=== PATIENT | male | born 1980 ===

== ENCOUNTER 2017-11-20 09:15 | Inpatient (IN) | payer MEDICAID ==
[2017-11-20 09:23] VITALS: BMI 24.3
--- NOTE | 2017-11-20 09:33 | C.PDOC ---
History Of Present Illness 37 years old male presents to ED requesting detox from heroin, cocaine, and alcohol. Patient states last use was yesterday. 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 Denies SI, depression or any other physical complaints. REQUESTING DETOX. HEROIN, COCAINE ETOH ABUSE LAST USE YESTERDAY. 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 NO ACUTE INTOX OR WITHDRAWAL, NEG SI/SA REMAINDER NEG <Layla Alatorre - Last Filed: 11/20/17 11:02> <Geeta Armstrong - Last Filed: 11/20/17 09:30> History Per: Patient History/Exam Limitations: no limitations Onset/Duration Of Symptoms: Hrs Current Symptoms Are (Timing): Still Present Suicide/Self Injury Attempted (Context): None Modifying Factor(s): Alcohol, Narcotics (Heroin ), Cocaine Associated Symptoms: denies: Suicidal Thoughts, Suicidal Plan Involuntary Hold By: None Recent travel outside of the [place]: No <Layla Alatorre - Last Filed: 11/20/17 11:02> Time Seen by Provider: 11/20/17 09:30 Chief Complaint (Nursing): Psychiatric Evaluation Past Medical History Vital Signs: Last Vital Signs Temp 98.2 F 11/20/17 09:23 Pulse 59 L 11/20/17 09:23 Resp 16 11/20/17 09:23 BP 128/81 11/20/17 09:23 Pulse Ox 99 11/20/17 09:23 - Social History Hx Alcohol Use: Yes Hx Substance Use: Yes - Immunization History Hx Tetanus Toxoid Vaccination: No Hx Influenza Vaccination: No Hx Pneumococcal Vaccination: No <Geeta Armstrong - Last Filed: 11/20/17 09:30> Reviewed: Historical Data, Nursing Documentation, Vital Signs Vital Signs: Last Vital Signs Temp 98.2 F 11/20/17 09:23 Pulse 59 L 11/20/17 09:23 Resp 16 11/20/17 09:23 BP 128/81 11/20/17 09:23 Pulse Ox 99 11/20/17 09:42 - Medical History PMH: No Chronic Diseases Family History: States: No Known Family Hx <Layla Alatorre - Last Filed: 11/20/17 11:02> Review Of Systems Except As Marked, All Systems Reviewed And Found Negative. Psych: Positive for: Other (Detox from heroin, cocaine, and alcohol.) <Layla Alatorre - Last Filed: 11/20/17 11:02> Physical Exam - Physical Exam Appears: Non-toxic, No Acute Distress, Other (PSYCH PATIENT, CALM, COOPERATIVE, NO ACUTE INTOXICATION OR WITHDRAWAL) Skin: Normal Color, Warm, Dry, No Rash Head: Atraumatic, Normacephalic Eye(s): bilateral: Normal Inspection, PERRL, EOMI Oral Mucosa: Moist Neck: Supple Chest: Symmetrical, No Tenderness Cardiovascular: Rhythm Regular, No Murmur Respiratory: Normal Breath Sounds, No Rales, No Rhonchi, No Wheezing, Other (NARD) Gastrointestinal/Abdominal: Bowel Sounds (Active ), Soft, No Tenderness, No Guarding, No Rebound Extremity: No Swelling Extremity: Bilateral: Atraumatic, Normal Color And Temperature, Normal ROM Pulses: Left Radial: Normal, Right Radial: Normal Neurological/Psych: Oriented x3, Normal Speech, Other (No focal deficits. No SI/SA ) Gait: Steady <Layla Alatorre - Last Filed: 11/20/17 11:02> ED Course And Treatment O2 Sat by Pulse Oximetry: 99 <Geeta Armstrong - Last Filed: 11/20/17 09:30> - Laboratory Results Result Diagrams: 11/20/17 09:53 11/20/17 09:53 Pulse Ox Interpretation: Normal - Physician Consult Information Time Consulting Physician Contacted: 10:44 Outcome Of Conversation: MEDICALLY CLEAR FOR DETOX. CRISIS NOTIFIED <Layla Alatorre - Last Filed: 11/20/17 11:02> Medical Decision Making Medical Decision Making: Plan: * UA * Blood work Crisis Notified. <Layla Alatorre - Last Filed: 11/20/17 11:02> Disposition <Geeta Armstrong - Last Filed: 11/20/17 09:30> <Layla Alatorre - Last Filed: 11/20/17 11:02> - Disposition Forms: [facility] (Chinese) - Scribe Statement The provider has reviewed the documentation as recorded by the Scribe George Page All medical record entries made by the Scribe were at my direction and personally dictated by me. I have reviewed the chart and agree that the record accurately reflects my personal performance of the history, physical exam, medical decision making, and the department course for this patient. I have also personally directed, reviewed, and agree with the discharge instructions and disposition.[email or web address] <Layla Alatorre - Last Filed: 11/20/17 11:02>
[2017-11-20 10:01] LABS: URINE BILIRUBIN NEGATIVE (NEGATIVE); URINE BLOOD NEGATIVE (NEGATIVE); URINE CLARITY Clear (Clear); URINE COLOR Straw (YELLOW); URINE GLUCOSE (UA) NORMAL (Normal); URINE LEUKOCYTE ESTERASE NEG Leu/uL (Negative); URINE PROTEIN NEGATIVE (NEGATIVE); URINE UROBILINOGEN NORMAL mg/dL (0.2-1.0)
[2017-11-20 10:08] LABS: BASO # 0.1 K/uL (0.0-0.2); EOS # 0.2 K/uL (0.0-0.7); EOS % 2.9 % (0.0-4.0); HEMOGLOBIN 16.2 g/dL (12.0-18.0); LYMPH # 1.1 K/uL (1.0-4.3); LYMPH % 14.3 % (20.0-40.0); MEAN CELL VOLUME 90.6 fL (80.0-94.0); MEAN CORPUSCULAR HGB CONC 34.2 g/dL (33.0-37.0); MEAN PLATELET VOLUME 9.9 fL (7.2-11.7); MONO # 0.5 K/uL (0.0-0.8); MONO % 6.5 % (0.0-10.0); NEUT % 75.3 % (50.0-75.0); NRBC % 0.1 % (0.0-2.0); RBC 5.25 Mil/uL (4.40-5.90); RED CELL DISTRIBUTION WIDTH 14.6 % (11.5-14.5); WHITE BLOOD COUNT 7.9 K/uL (4.8-10.8)
[2017-11-20 10:17] LABS: ALB/GLOB RATIO 1.3 (1.0-2.1); ALBUMIN 4.5 g/dL (3.5-5.0); ALT/SGPT 29 U/L (21-72); AST/SGOT 31 U/L (17-59); BLOOD UREA NITROGEN 15 mg/dL (9-20); CALCIUM 9.7 mg/dl (8.6-10.4); GFR NON-AFRICAN AMERICAN > 60
[2017-11-20 10:38] LABS: BARBITURATES, UR NEGATIVE (NEGATIVE); BENZODIAZEPINES, UR NEGATIVE (NEGATIVE); PHENCYCLIDINE, UR NEGATIVE (NEGATIVE)
[2017-11-20 10:41] LABS: OPIATES, UR POSITIVE (NEGATIVE)
--- NOTE | 2017-11-20 11:42 | C.PDOC ---
History Of Present Illness 37 years old male presents to ED requesting detox from heroin, cocaine, and alcohol. Patient states last use was yesterday. 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 Denies SI, depression or any other phys ical complaints. REQUESTING DETOX. HEROIN, COCAINE ETOH ABUSE LAST USE YESTERDAY. 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 NO ACUTE INTOX OR WITHDRAWAL, NEG SI/SA REMAINDER NEG Time Seen by Provider: 11/20/17 09:30 Chief Complaint (Nursing): Psychiatric Evaluation History Per: Patient History/Exam Limitations: no limitations Onset/Duration Of Symptoms: Hrs Current Symptoms Are (Timing): Still Present Suicide/Self Injury Attempted (Context): None Modifying Factor(s): Alcohol, Narcotics (Heroin ), Cocaine Associated Symptoms: denies: Suicidal Thoughts, Suicidal Plan Involuntary Hold By: None Recent travel outside of the [place]: No Past Medical History Reviewed: Historical Data, Nursing Documentation, Vital Signs Vital Signs: Last Vital Signs Temp 98.2 F 11/20/17 09:23 Pulse 59 L 11/20/17 09:23 Resp 16 11/20/17 09:23 BP 128/81 11/20/17 09:23 Pulse Ox 99 11/20/17 09:42 - Medical History PMH: No Chronic Diseases Family History: States: No Known Family Hx - Social History Hx Alcohol Use: Yes Hx Substance Use: Yes - Immunization History Hx Tetanus Toxoid Vaccination: No Hx Influenza Vaccination: No Hx Pneumococcal Vaccination: No Review Of Systems Except As Marked, All Systems Reviewed And Found Negative. Psych: Positive for: Other (Detox from heroin, cocaine, and alcohol. ). Negative for: Suicidal ideation Physical Exam - Physical Exam Appears: Non-toxic, No Acute Distress, Other (PSYCH PATIENT; CALM, COOPERATIVE, NO ACUTE INTOXICATION, OR WITHDRAWAL. NEGATIVE SI/SA) Skin: Normal Color, Warm, Dry, No Rash Head: Atraumatic, Normacephalic Eye(s): bilateral: Normal Inspection, PERRL, EOMI Oral Mucosa: Moist Neck: Supple Chest: Symmetrical, No Tenderness Cardiovascular: Rhythm Regular, No Murmur Respiratory: Normal Breath Sounds, No Rales, No Rhonchi, No Wheezing, Other (DOMO D) Gastrointestinal/Abdominal: Bowel Sounds (Active ), Soft, No Tenderness, No Guarding, No Rebound Extremity: No Swelling Extremity: Bilateral: Atraumatic, Normal Color And Temperature, Normal ROM Pulses: Left Radial: Normal, Right Radial: Normal Neurological/Psych: Oriented x3, Normal Speech, Other (No focal deficits ) Gait: Steady ED Course And Treatment - Laboratory Results Result Diagrams: 11/20/17 09:53 11/20/17 09:53 O2 Sat by Pulse Oximetry: 99 (RA) Pulse Ox Interpretation: Normal Medical Decision Making Medical Decision Making: Plan: * Blood work * UA Crisis Notified. Disposition Counseled Patient/Family Regarding: Studies Performed, Diagnosis - Disposition Disposition: HOSPITALIZED Disposition Time: 11:54 Condition: STABLE Forms: [facility] (Khmer) - POA Present On Arrival: None - Clinical Impression Clinical Impression: Polysubstance abuse - Scribe Statement The provider has reviewed the documentation as recorded by the Scribe George Page All medical record entries made by the Scribe were at my direction and personally dictated by me. I have reviewed the chart and agree that the record accurately reflects my personal performance of the history, physical exam, medical decision making, and the department course for this patient. I have also personally directed, reviewed, and agree with the discharge instructions and disposition.[email or web address]
--- NOTE | 2017-11-20 13:17 | PCM.BM ---
<Yoli Adams - Last Filed: 11/20/17 13:16> Treatment Plan Problems - Problems identified on initial assessmt Potential for opiate withdrawal Date Initiated: 11/20/17 Time Initiated: 13:17 Assessment reference: NA Status: Active Treatment assets and liabiliti Patient Assests: adapts well, cooperative, insightful, self-reliant, ADL independent Patient Liabilities: financial problems, relationship conflicts, substance abuse - Milieu Protocol Maintain good personal hygiene: daily Encourage regular showers, daily Remind patient to perform daily oral care, daily Assist patient to perform ADL's Maintain personal safety: daily Educate patient to report safety concerns to staff, daily Monitor environment for contraband/sharps, every shift Educate patient to report safety concerns to staff, every shift Monitor environment for contraband/sharps Medication safety: Monitor for expected outcome, potential side effects: daily, every shift, Assess barriers to learning: daily, every shift, Assess readiness for medication education: daily, every shift <Susan Álvarez - Last Filed: 11/23/17 12:46> - Diagnosis (1) Opioid use disorder, severe, dependence Status: Acute Interventions: 11/23/17 12:46 * Assess 7x/week regarding severity of withdrawal * Educate regarding risks, benefits, side effects and alternatives of medications * Use Motivational Interviewing for abstinence * Use CBT for relapse prevention * Medication management for withdrawal symptoms * Encourage medication assisted treatment *
[2017-11-21] MEDS ORDERED: Aluminum Hydroxide/Magnesium Hydroxide Susp (30 mL) PO PRN (09:02)
--- NOTE | 2017-11-21 13:17 | PCM.PSYCH ---
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 This is his second detox He says he has had ODs, lost family and jobs, cannot stop alone or outside. He was in [place] for detox and rehab Uses cocaine 1/4 gm daily iv Smokes 1 ppd cigarettes He says he used everything but not anymore He describes pTSD from childhood and later traumas, not sexual. He also has depression, anxiety and as a child he had ADHD Not suicidal or homicidal Family psych : lots of people with bipolar d/o and substance use medical hx: denied Current Medications: Active Medications Generic Name Dose Route Start Last Admin Trade Name Freq PRN Reason Stop Dose Admin Al Hydrox/Mg Hydrox/Simethicone 30 ml 11/21/17 09:02 Maalox 30 Ml PO TID PRN Indigestion / Heartburn Clonidine HCl 0.1 mg 11/21/17 09:03 Catapres PO Q8 PRN COWS Score More or Equal to 5 Gabapentin 400 mg 11/21/17 14:00 Neurontin PO TID LATRELL Hydroxyzine HCl 50 mg 11/21/17 10:24 11/21/17 10:40 Atarax PO 50 mg Q6 PRN Administration Anxiety Ibuprofen 600 mg 11/20/17 16:19 11/21/17 11:30 Motrin Tab PO 600 mg Q6 PRN Administration pain Loperamide HCl 2 mg 11/21/17 09:03 Imodium PO Q8 PRN Diarrhea Methadone HCl 15 mg 11/21/17 10:00 11/21/17 09:23 Methadone PO 11/25/17 09:59 15 mg Q24H LATRELL Administration Taper Ondansetron HCl 4 mg 11/21/17 09:03 Zofran Tab PO Q8 PRN Nausea/Vomiting Trazodone HCl 50 mg 11/20/17 18:11 Desyrel PO HS PRN insomnia Past Psychiatric History - Past Psychiatric History Previous Treatment History: Intensive Outpatient Pertinent Medical Hx (Current Medical&Sleep Prob, Allergies): Allergies Allergy/AdvReac Type Severity Reaction Status Date / Time No Known Allergies Allergy Verified 11/20/17 09:22 No Known Home Med 11/20/17 Review of Systems - Neurological Neurological: UNREMARKABLE - Psychiatric Psychiatric: Abnormal Sleep Pattern, Anhedonia, Anxiety, Change in Appetite, Difficulty Concentrating, Irritability. absent: Hallucinations, Homicidal Ideation, Paranoia, Suicidal Ideation Mental Status Examination - Personal Presentation Personal Presentation: Looks stated age - Affect Affect: Constricted - Motor Activity Motor Activity: Calm - Reliability in Providing Information Reliability in Providing Information: Good - Speech Speech: Organized - Mood Mood: Anxious - Formal Thought Process Formal Thought Process: No Impairment - Cognitive Functions Orientation: Person, Place, Situation, Time Sensorium: Alert Attention/Concentration: Attentive Estimate of Intelligence: Average Judgement: Intact, as evidence by: Insight regarding need for hospitalization Memory: Recent intact, as evidence by: Ability to recall events of the day, Remote intact, as evidenced by: Abilit to recall sig. life events - Risk Risk: Withdrawal, Diminished functioning - Strength & Assets Inventory Strength & Assets Inventory: Cooperative - Limitations Limitations: Living alone DSM 5 DX - DSM 5 DSM 5 Diagnosis: Opioid withdrawal Opioid use d/o - severe PTSD Depressive d/o - unspecified Cocaine use d/o - sveer Tobacco use d/o - severe ADHD by history - Recommended/Plan of Treatment Treatment Recommendations and Plan of Treatment: Taper with methadone Gabapentin for augmentation As needed medications All risks, benefits and alternatives of the meds discussed, and the pt agreed and understood. Attend groups and activities Supportive therapy and psychoeducation WA for abstinence CBT for relapse prevention and PTSD, depression, anxiety Encourage MAT Refer to rehab or IOP, and self-help groups Teach healthy lifestyle methods, i.e. diet, exercise, meditation Smoking cessation with WA Nicotine patch if needed 34 min Projected ELOS: 4-5 days Prognosis: good - Smoking Cessation Smoking Cessation Initiated: Yes
--- NOTE | 2017-11-22 12:48 | PCM.PYCHPN ---
Psychiatric Progress Note - Psychiatric Progress Note Patient seen today, length of contact: 16 min Patient Chief Complaint: "I am very anxious" Problems Identified/Issues Discussed: The pt is seen, chart reviewed, case discussed with staff. Support and psychoeducation given, CBT and AL used briefly No new symptoms reported, improving slowly and needs more time No SEs from medications, risks discussed. After care discussed Medication Change: Yes (Detox changes daily) Medical Record Reviewed: Yes Mental Status Examination - Cognitive Function Orientation: Person, Place, Situation, Time Memory: Intact Attention: WNL Concentration: Poor Association: WNL Fund of Knowledge: WNL - Mood Mood: Anxious - Affect Affect: Constricted - Speech Speech: Appropriate - Formal Thought Process Formal Thought Process: No Impairment - Suicidal Ideation Suicidal Ideation: No - Homicidal Ideation Homicidal Ideation: No Goal/Treatment Plan - Goal/Treatment Plan Need for Continued Stay: Discharge may exacerbated symptoms, Severe functional impairment Progress Toward Problem(s) and Goals/Treatment Plan: Taper with methadone Gabapentin for augmentation As needed medications All risks, benefits and alternatives of the meds discussed, and the pt agreed and understood. Attend groups and activities Supportive therapy and psychoeducation AL for abstinence CBT for relapse prevention and PTSD, depression, anxiety Encourage MAT Refer to rehab or IOP, and self-help groups Teach healthy lifestyle methods, i.e. diet, exercise, meditation Smoking cessation with AL Nicotine patch if needed
--- NOTE | 2017-11-23 12:46 | PCM.PYCHPN ---
Psychiatric Progress Note - Psychiatric Progress Note Patient seen today, length of contact: 15 minutes Patient Chief Complaint: "I'm very worried" Problems Identified/Issues Discussed: The pt is seen, chart reviewed, case discussed with staff. The pt is compliant with medications and reports no side-effects. Symptoms are improving but needs more time to stabilize. Pt attends groups and activities. Support given, psycho-education provided. After care discussed. Medication Change: Yes (Detox change stay) Medical Record Reviewed: Yes Mental Status Examination - Cognitive Function Orientation: Person, Place, Situation, Time Memory: Intact Attention: WNL Concentration: Poor Association: WNL Fund of Knowledge: WNL - Mood Mood: Anxious - Affect Affect: Constricted - Speech Speech: Appropriate - Formal Thought Process Formal Thought Process: No Impairment - Suicidal Ideation Suicidal Ideation: No - Homicidal Ideation Homicidal Ideation: No Goal/Treatment Plan - Goal/Treatment Plan Need for Continued Stay: Discharge may exacerbated symptoms, Severe functional impairment Progress Toward Problem(s) and Goals/Treatment Plan: Taper with methadone Gabapentin for augmentation As needed medications All risks, benefits and alternatives of the meds discussed, and the pt agreed and understood. Attend groups and activities Supportive therapy and psychoeducation NE for abstinence CBT for relapse prevention and PTSD, depression, anxiety Encourage MAT Refer to rehab or IOP, and self-help groups Teach healthy lifestyle methods, i.e. diet, exercise, meditation Smoking cessation with NE Nicotine patch if needed
--- NOTE | 2017-11-24 08:34 | PCM.PYCHDC ---
Mental Status Examination - Mental Status Examination Orientation: Person, Place, Situation, Time Memory: Intact Mood: Anxious Affect: Constricted Speech: Appropriate Attention: WNL Concentration: WNL Association: WNL Fund of Knowledge: WNL Formal Thought Process: No Impairment Suicidal Ideation: No Current Homicidal Ideation?: No Discharge Summary - Discharge Note Consultations:: List each consultation separately and include: 1. Reason for request. 2. Findings. 3. Follow-up Summary of Hospital Course include:: 1. Description of specific treatment plan utilized for patients during their course of treatmen. 2. Summarize the time- course for resolution of acute symptoms and/or regressed behaviors. 3. Describe issues identified and worked on during hospitalization. 4. Describe medication utilized. 5. Describe medical problems identified and treated. 6. Reassessment of suicide risk Summary of Hospital Course: Hospital course: The pt was admitted and started on treatment with psychotherapy, support, psychoeducation and medications. CO and CBT used. The pt attended groups and activities, as well as milieu therapy. All the risks and benefits of medications are discussed and the patient understood and agreed. The pt improved with the treatments provided. After care discussed with the patient. 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 This is his second detox He says he has had ODs, lost family and jobs, cannot stop alone or outside. He was in [place] for detox and rehab Uses cocaine 1/4 gm daily iv Smokes 1 ppd cigarettes He says he used everything but not anymore He describes pTSD from childhood and later traumas, not sexual. He also has depression, anxiety and as a child he had ADHD Not suicidal or homicidal Family psych : lots of people with bipolar d/o and substance use medical hx: denied He will go to [facility]. He is also accepted by [facility] but with a 3-4 week wait list. - Final Diagnosis (DSM 5) Condition upon Discharge: STABLE DSM 5: Opioid withdrawal Opioid use d/o - severe PTSD Depressive d/o - unspecified Cocaine use d/o - sveer Tobacco use d/o - severe ADHD by history Disposition: HOME/ ROUTINE Follow-up Treatment Plan: Continue below medications after discharge. Follow after care plan as discussed. Use relapse prevention skills Return to ER or call 911 if suicidal, homicidal or symptoms relapse. Stay away from stress, alcohol and drugs. See primary doctor regularly and get labs. Prescriptions/Medication Reconciliation: Gabapentin [Neurontin] 400 mg PO TID #90 cap traZODone [Desyrel] 100 mg PO HS PRN #30 tab PRN Reason: insomnia
[2017-11-24 09:35] VITALS: BP 127/66; PULSE 72; RESP 18; TEMP 97.6; O2SAT 96
== END 2017-11-24 11:20 | disposition home or self-care (01) | DRG 745 ==
LOC: C.ER 09:15 → C.7D 11:54
PROVIDERS: ADMIT Psychiatry & Neurology Psychiatry; ATTEND Psychiatry & Neurology Psychiatry
PROC: HZ2ZZZZ Detoxification Services for Substance Abuse Treatment (ICD-10-PCS; principal; 2017-11-20)
PROC: HZ81ZZZ Medication Management for Substance Abuse Treatment, Methadone Maintenance (ICD-10-PCS; 2017-11-20)
PROC: GZ3ZZZZ Medication Management (ICD-10-PCS; 2017-11-20)
PROC: HZ80ZZZ Medication Management for Substance Abuse Treatment, Nicotine Replacement (ICD-10-PCS; 2017-11-20)
PROC: HZ46ZZZ Group Counseling for Substance Abuse Treatment, Psychoeducation (ICD-10-PCS; 2017-11-20)
PROC: HZ59ZZZ Individual Psychotherapy for Substance Abuse Treatment, Supportive (ICD-10-PCS; 2017-11-20)
DX: F11.23 Opioid dependence with withdrawal (principal); F14.90 Cocaine use, unspecified, uncomplicated; F32.9 Major depressive disorder, single episode, unspecified; F10.10 Alcohol abuse, uncomplicated; F17.210 Nicotine dependence, cigarettes, uncomplicated; F43.10 Post-traumatic stress disorder, unspecified; F90.9 Attention-deficit hyperactivity disorder, unspecified type; Z81.8 Family history of other mental and behavioral disorders